=== PATIENT | male | born 1935 | race African-American/Black ===

== ENCOUNTER 2017-04-21 18:12 | Emergency (ER) | payer MEDICARE, MEDICAID ==
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
--- NOTE | 2017-04-22 08:22 | Diagnostic Imaging Report ---
Exam: Cervical spine. HISTORY: Pain Findings: Multiple views of cervical spine reviewed. The study demonstrates degenerative osteophytic changes with narrowing of the intravertebral disc space and extensive osteophytic spurring throughout. There is no evidence of fracture dislocation. The visualized odontoid process is intact. No prevertebral soft tissue swelling is noted. 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
== END 2017-04-21 21:25 | disposition home or self-care (01) ==
LOC: ER 18:12
DX: S16.1XXA Strain of muscle, fascia and tendon at neck level, initial encounter (principal); I25.10 Atherosclerotic heart disease of native coronary artery without angina pectoris; E11.9 Type 2 diabetes mellitus without complications; V49.9XXA Car occupant (driver) (passenger) injured in unspecified traffic accident, initial encounter; Y99.8 Other external cause status; Y92.410 Unspecified street and highway as the place of occurrence of the external cause; Y93.89 Activity, other specified
CPT/HCPCS: 72050-TC; 82948-90; Z7502; Z7610

== ENCOUNTER 2018-02-24 01:58 | Emergency (ER) | payer MEDICARE, MEDICAID ==
[2018-02-24] MEDS ORDERED: Magnesium Citrate 1.75 GM/300 mL Bottle PO ONE (03:38)
[2018-02-24] MEDS ORDERED: Magnesium Citrate 1.75 GM/300 mL Bottle ONE (03:43)
--- NOTE | 2018-02-24 03:45 | ED Physician Chart ---
ED Chief Complaint/HPI - Patient Information Date Seen:: 02/24/18 Time Seen:: 03:39 Chief Complaint:: constipation History of Present Illness:: 83 yr old black male with 5 day hx of constipation no hx of bowel surgery did one enema that pharmacy gave him some nausea and can not take liquids feels like vomiting Allergies:: Allergies Allergy/AdvReac Type Severity Reaction Status Date / Time No Known Allergies Allergy Verified 04/21/17 19:22 Vitals:: Vital Signs - 8 hr 02/24/18 02:30 Temp 96.7 F HR 71 RR 17 BP 188/80 O2 Sat % 97 Historian:: Patient ED Review of Systems - Review of Systems General/Constitutional: No fever, No chills, No weight loss, No weakness, No diaphoresis, No edema, No loss of appetite Skin: No skin lesions, No rash, No bruising Head: No headache, No light-headedness Eyes: No loss of vision, No pain, No diplopia ENT: No earache, No nasal drainage, No sore throat, No tinnitus Neck: No neck pain, No swelling, No thyromegaly, No stiffness, No mass noted Cardio Vascular: No chest pain, No palpitations, No PND, No orthopnea, No edema Pulmonary: No SOB, No cough, No sputum, No wheezing GI: Nausea, Constipation G/U: No dysuria, No frequency, No hematuria Musculoskeletal: No bone or joint pain, No back pain, No muscle pain Endocrine: No polyuria, No polydipsia Psychiatric: No prior psych history, No depression, No anxiety, No suicidal ideation Hematopoietic: No bruising, No lymphadenopathy Allergic/Immuno: No urticaria, No angioedema Neurological: No syncope, No focal symptoms, No weakness, No paresthesia, No headache, No seizure, No dizziness, No confusion, No vertigo ED Past Medical History - Past Medical History Past Medical History: DM, CAD, Dyslipidemia Surgical History: CABG ED Physical Exam - Physical Examination General/Constitutional: Awake, Well-developed, well-nourished, Alert, No distress, GCS 15, Non-toxic appearing, Ambulatory Head: Atraumatic Eyes: Lids, conjuctiva normal, PERRL, EOMI Skin: Nl inspection, No rash, No skin lesions, No ecchymosis, Well hydrated, No lymphadenopathy ENMT: External ears, nose nl, Nasal exam nl, Lips, teeth, gums nl Neck: Nontender, Full ROM w/o pain, No JVD, No nuchal rigidity, No bruit, No mass, No stridor Respiratory: Nl effort/Exclusion, Clear to Auscultation, No Wheeze/Rhonchi/Rales Cardio Vascular: RRR, No murmur, gallop, rubs, NL S1 S2 GI: No tenderness/rebounding/guarding, No organomegaly, No hernia, Normal BS's, Nondistended, No mass/bruits, No McBurney tenderness : No CVA tenderness Extremities: No tenderness or effusion, Full ROM, normal strength in all extremities, No edema, Normal digits & nails Neuro/Psych: Alert/oriented, DTR's symmetric, Normal sensory exam, Normal motor strength, Judgement/insight normal, Mood normal, Normal gait, No focal deficits Misc: Normal back, No paraspinal tenderness ED Assessment - Assessment General Assessment: constipation ED Septic Shock - . Is Septic Shock (SBP<90, OR Lactate>4 mmol\L) present?: No - <6hrs of presentation: Vital Signs: Vital Signs - 8 hr 02/24/18 02:30 Temp 96.7 F HR 71 RR 17 BP 188/80 O2 Sat % 97 ED Reassessment (Disposition) - Reassessment Reassessment Condition:: Improved - Diagnosis Diagnosis:: constipation - Patient Disposition Condition at Disposition:: Stable
== END 2018-02-24 04:32 | disposition home or self-care (01) ==
LOC: ER 01:58
DX: K59.00 Constipation, unspecified (principal); R11.0 Nausea; E11.9 Type 2 diabetes mellitus without complications; E78.5 Hyperlipidemia, unspecified; I25.10 Atherosclerotic heart disease of native coronary artery without angina pectoris; Z95.1 Presence of aortocoronary bypass graft

== ENCOUNTER 2019-01-17 08:02 | Inpatient (IN) | payer MEDICARE, MEDICAID ==
--- NOTE | 2019-01-17 08:58 | ED Physician Chart ---
ED Chief Complaint/HPI - Patient Information Date Seen:: 01/17/19 Time Seen:: 08:56 Chief Complaint:: cough fever History of Present Illness:: 84 yr old male from long term with cough fever congestion hx of bypass surgery Allergies:: Allergies Allergy/AdvReac Type Severity Reaction Status Date / Time No Known Allergies Allergy Verified 04/21/17 19:22 Vitals:: Vital Signs - 8 hr 01/17/19 08:15 Temp 97.7 F HR 82 RR 20 BP 185/90 O2 Sat % 97 ED Review of Systems - Review of Systems General/Constitutional: No fever Skin: No skin lesions Head: No headache Eyes: No loss of vision ENT: No earache Cardio Vascular: No palpitations Pulmonary: Cough GI: No vomiting Endocrine: No polyuria Hematopoietic: No bruising Allergic/Immuno: No urticaria Neurological: No syncope ED Past Medical History - Past Medical History Past Medical History: DM, CAD Family Medical History - Family Member Mother History Unknown: Yes ED Physical Exam - Physical Examination General/Constitutional: Awake, Well-developed, well-nourished, Alert, No distress, GCS 15, Non-toxic appearing, Ambulatory Head: Atraumatic Eyes: Lids, conjuctiva normal, PERRL, EOMI Skin: Nl inspection, No rash, No skin lesions, No ecchymosis, Well hydrated, No lymphadenopathy ENMT: External ears, nose nl, Nasal exam nl, Lips, teeth, gums nl Neck: Nontender, Full ROM w/o pain, No JVD, No nuchal rigidity, No bruit, No mass, No stridor Respiratory: Nl effort/Exclusion, Clear to Auscultation, No Wheeze/Rhonchi/Rales Cardio Vascular: RRR, No murmur, gallop, rubs, NL S1 S2 GI: No tenderness/rebounding/guarding, No organomegaly, No hernia, Normal BS's, Nondistended, No mass/bruits, No McBurney tenderness : No CVA tenderness Extremities: No tenderness or effusion, Full ROM, normal strength in all extremities, No edema, Normal digits & nails Neuro/Psych: Alert/oriented, DTR's symmetric, Normal sensory exam, Normal motor strength, Judgement/insight normal, Mood normal, Normal gait, No focal deficits Misc: Normal back, No paraspinal tenderness ED Assessment - Assessment General Assessment: sob cough ED Septic Shock - . Is Septic Shock (SBP<90, OR Lactate>4 mmol\L) present?: No - <6hrs of presentation: Vital Signs: Vital Signs - 8 hr 01/17/19 08:15 Temp 97.7 F HR 82 RR 20 BP 185/90 O2 Sat % 97 ED Reassessment (Disposition) - Reassessment Reassessment:: sob cough - Diagnosis Diagnosis:: sob cough - Patient Disposition Discharge/Transfer:: Acute Care w/in this hosp Admitted to:: Telemetry Condition at Disposition:: Stable
[2019-01-17] MEDS ORDERED: Albuterol/Ipratropium Neb 3 ML AERS HHN ONE (09:17)
[2019-01-17 09:27] LABS: HEMATOCRIT 36.5 % (41.0-60); HEMOGLOBIN 11.8 gm/dL (12-16); MEAN CELL VOLUME 82.1 fl (80-99); MEAN CORPUSCULAR HEMOGLOBIN 26.6 pg (27.0-31.0); MEAN CORPUSCULAR HGB CONC 32.3 pg (28.0-36.0); PLATELET COUNT 169 Th/cmm (150-400); RED BLOOD COUNT 4.45 Mil/cmm (3.80-5.80)
[2019-01-17 09:37] LABS: ALB/GLOB RATIO 1.4 (1.0-1.8); ALBUMIN 3.5 gm/dL (4.2-5.5); ALKALINE PHOSPHATASE 64 U/L (34-104); ANION GAP 12.1 (7.0-16.0); BILIRUBIN,TOTAL 0.4 mg/dL (0.3-1.0); BUN - UREA NITROGEN 14 mg/dL (7-25); CALCIUM SERUM 8.7 mg/dL (8.6-10.3); CARBON DIOXIDE 25.7 mEq/L (21.0-31.0); CHLORIDE 110 mEq/L (98-107); CREATININE - SERUM 1.2 mg/dL (0.7-1.3); GLUCOSE 82 mg/dL (70-105); POTASSIUM SERUM 3.8 mEq/L (3.5-5.1); SGOT 11 U/L (13-39); SGPT/ALT 13 U/L (7-52); SODIUM SERUM 144 mEq/L (136-145); TOTAL PROTEIN,SERUM 6.1 gm/dL (6.0-8.3)
[2019-01-17 10:21] LABS: BAND NEUTROPHILE 3 % (0-10); BASOPHIL 0 % (0-3); LYMPHOCYTE 54 % (20-50); MONOCYTE 6 % (2-10); NEUTROPHILS 35 % (40-80); WHITE BLOOD COUNT 3.9 Th/cmm (4.8-10.8)
[2019-01-17 10:22] LABS: EOSINOPHIL 2 % (0-5)
[2019-01-17 10:30] LABS: URINE BILIRUBIN NEGATIVE (NEGATIVE); URINE BLOOD NEGATIVE (NEGATIVE); URINE GLUCOSE (UA) NEGATIVE (NEGATIVE); URINE KETONE NEGATIVE (NEGATIVE); URINE LEUKOCYTE ESTERASE NEGATIVE (NEGATIVE); URINE NITRATE NEGATIVE (NEGATIVE); URINE PH 6.5 (4.6 - 8.0); URINE PROTEIN NEGATIVE (NEGATIVE); URINE SOURCE CLEAN C; URINE UROBILINOGEN 0.2 E.U./dL (0.2 - 1.0)
[2019-01-17 10:32] LABS: URINE CLARITY CLEAR (CLEAR); URINE COLOR YELLOW; URINE MICROSCOPIC INDICATED? NO
[2019-01-17] MEDS ORDERED: NITROGLYCERIN OINT 2% 1 INCH PACKET TP STA (12:14)
[2019-01-17] MEDS ORDERED: NITROGLYCERIN OINT 2% 1 INCH PACKET TP ONE (12:29)
[2019-01-17 16:46] VITALS: BP 146/80
[2019-01-18 06:43] LABS: ALB/GLOB RATIO 1.3 (1.0-1.8); ALBUMIN 3.5 gm/dL (4.2-5.5); ALKALINE PHOSPHATASE 64 U/L (34-104); BILIRUBIN,TOTAL 0.5 mg/dL (0.3-1.0); BUN - UREA NITROGEN 19 mg/dL (7-25); CALCIUM SERUM 8.9 mg/dL (8.6-10.3); CARBON DIOXIDE 29.8 mEq/L (21.0-31.0); CHLORIDE 105 mEq/L (98-107); CREATININE - SERUM 1.3 mg/dL (0.7-1.3); GLUCOSE 87 mg/dL (70-105); POTASSIUM SERUM 3.8 mEq/L (3.5-5.1); SGOT 10 U/L (13-39); SGPT/ALT 12 U/L (7-52); SODIUM SERUM 141 mEq/L (136-145); TOTAL PROTEIN,SERUM 6.2 gm/dL (6.0-8.3)
[2019-01-18] MEDS: methylPREDNISolone 4 MG TAB PO SCH (08:17)
[2019-01-18] MEDS ORDERED: Non-Formulary Item 1 EA (Cholecalciferol (Vitamin D3) [Vitamin D3] 5,000 UNIT) PO SCH (09:00)
--- NOTE | 2019-01-18 09:54 | Diagnostic Imaging Report ---
Portable chest x-ray Time: 905 History: Shortness of breath Allowing for portable technique the heart size is normal. No focal pulmonary parenchymal processes. No hilar or mediastinal abnormalities. Multiple metallic sutures are noted status post transsternal thoracotomy. Impression: No acute abnormalities.
[2019-01-18 11:07] LABS: HEMATOCRIT 37.6 % (41.0-60); HEMOGLOBIN 11.9 gm/dL (12-16); RED BLOOD COUNT 4.49 Mil/cmm (3.80-5.80)
[2019-01-18 11:08] LABS: % BASOPHILS 0.3 % (0.0-2.0); % EOSINOPHILS 3.9 % (0.0-5.0); % LYMPHOCYTES 35.7 % (20.0-50.0); % MONOCYTES 9.1 % (2.0-10.0); EOSINOPHILE ABSOLUTE 0.2 Th/cmm (0.1-0.4); LYMPHOCYTE ABSOLUTE 1.8 Th/cmm (1.5-3.0); MEAN CELL VOLUME 83.8 fl (80-99); MEAN CORPUSCULAR HEMOGLOBIN 26.6 pg (27.0-31.0); MEAN CORPUSCULAR HGB CONC 31.8 pg (28.0-36.0); MONOCYTE ABSOLUTE 0.5 Th/cmm (0.3-1.0); NEUTROPHILE ABSOLUTE 2.6 Th/cmm (1.8-8.0); PLATELET COUNT 150 Th/cmm (150-400)
--- NOTE | 2019-01-18 11:15 | History and Physical ---
History of Present Illness - HPI Chief Complaint: SOB HPI: Patient refer that he started having SOB and due to the Hx (Bypass surgery ) he decided to come to ER. In ER eval Tropo, CXR and blood work was Ok. Vital Signs: Last Vital Signs Temp 96.6 F 01/18/19 08:02 Pulse 74 01/18/19 10:06 Resp 19 01/18/19 08:02 BP 136/59 01/18/19 10:06 Pulse Ox 99 01/18/19 08:02 Past Medical History Cardiovascular: Report: CAD, HTN Pulmonary: Report: No Pertinent Hx PHONE SPECIALIST: Report: No Pertinent Hx GI: Report: No Pertinent Hx Psych: Report: No Pertinent Hx Musculoskeletal: Report: No Pertinent Hx Rheumatologic: Report: No pertinent Hx Infectious Disease: Report: No Pertinent Hx Renal/: Report: No Pertinent Hx Endocrine: Report: Diabetes Dermatology: Report: No Pertinent Hx - Past Surgical History Past Surgical History: Other (Bypass surgery) Family Medical History - Family Member Mother History Unknown: Yes Other Medical History: DM, HTN, Gout, Hyperlipidemia Social History Smoke: No Alcohol: None Drugs: None Lives: With Family Domestic Violence: Negative - Medications Home Medications: Home Medication Medication Instructions Recorded Type Aspirin [Adult Low Dose Aspirin EC] 81 mg PO DAILY 01/17/19 History Atorvastatin Calcium [Lipitor] 20 mg PO DAILY 01/17/19 History Carvedilol [Coreg] 12.5 mg PO BID 01/17/19 History Cholecalciferol (Vitamin D3) 5,000 unit PO DAILY 01/17/19 History [Vitamin D3] Methylprednisolone [Medrol Dosepak] 4 mg PO PRN 01/17/19 History Mirabegron [Myrbetriq] 50 mg PO DAILY 01/17/19 History Pregabalin [Lyrica] 75 mg PO BID 01/17/19 History Tamsulosin HCl [Flomax] 0.4 mg PO BID 01/17/19 History Terazosin HCl 2 mg PO DAILY 01/17/19 History - Allergies Allergies/Adverse Reactions: Allergies Allergy/AdvReac Type Severity Reaction Status Date / Time No Known Allergies Allergy Verified 04/21/17 19:22 Review of Systems - Review of Systems Constitutional: Report: No Significant Eyes: Report: No Significant ENT: Report: No Significant Respiratory: Report: SOB with Excertion Cardiovascular: Report: No Significant Gastrointestinal: Report: No Significant Genitourinary: Report: No Significant Musculoskeletal: Report: No Significant Skin: Report: No Significant Neurological: Report: No Significant Physical Exam - Physical Exam HEENT: Report: Ears Nose Throat within normal limits Neck: Report: Within normal limits Cardiovascular Systems: Report: Regular, Rate and Rhythm Respiratory: Report: Breath Sounds are within normal limits Abdomen: Report: Non-tender to palpation Back: Report: Inspection of back is within normal limits. Extremities: Report: Non-tender to palpation. Skin: Report: Color of skin is within normal limits Neuro/Psych: Report: Mood affect is within normal limits, CN II-XII intact - Lab Results All Lab Results last 24 hours: Laboratory Results - last 24 hr 01/17/19 01/18/19 01/18/19 16:26 00:02 05:57 WBC 5.0 RBC 4.49 Hgb 11.9 L Hct 37.6 L MCV 83.8 MCH 26.6 L MCHC Differential 31.8 RDW 16.0 Plt Count 150 MPV 10.5 Neutrophils % 51.0 Lymphocytes % 35.7 Monocytes % 9.1 Eosinophils % 3.9 Basophils % 0.3 Sodium Potassium Chloride Carbon Dioxide Anion Gap BUN Creatinine Est GFR ( Amer) Est GFR (Non-Af Amer) BUN/Creatinine Ratio Glucose POC Glucose 147 H 88 Calcium Total Bilirubin AST ALT Alkaline Phosphatase Total Protein Albumin Globulin Albumin/Globulin Ratio TSH 01/18/19 01/18/19 01/18/19 05:57 05:57 06:03 WBC RBC Hgb Hct MCV MCH MCHC Differential RDW Plt Count MPV Neutrophils % Lymphocytes % Monocytes % Eosinophils % Basophils % Sodium 141 Potassium 3.8 Chloride 105 Carbon Dioxide 29.8 Anion Gap 10.0 BUN 19 Creatinine 1.3 Est GFR ( Amer) TNP Est GFR (Non-Af Amer) TNP BUN/Creatinine Ratio 14.6 Glucose 87 POC Glucose 67 L Calcium 8.9 Total Bilirubin 0.5 AST 10 L ALT 12 Alkaline Phosphatase 64 Total Protein 6.2 Albumin 3.5 L Globulin 2.7 Albumin/Globulin Ratio 1.3 TSH 2.08 01/18/19 08:30 WBC RBC Hgb Hct MCV MCH MCHC Differential RDW Plt Count MPV Neutrophils % Lymphocytes % Monocytes % Eosinophils % Basophils % Sodium Potassium Chloride Carbon Dioxide Anion Gap BUN Creatinine Est GFR ( Amer) Est GFR (Non-Af Amer) BUN/Creatinine Ratio Glucose POC Glucose 163 H Calcium Total Bilirubin AST ALT Alkaline Phosphatase Total Protein Albumin Globulin Albumin/Globulin Ratio TSH Microbiology 01/17/19 09:10 - Preliminary Blood NO GROWTH AFTER 24 HOURS 01/17/19 09:16 - Preliminary Blood NO GROWTH AFTER 24 HOURS - Assessment Assessment: Patient is awake, alert, calm in no acute distress. No more SOB. Dx: SOB, DM, CAD, Hx of bypass. - Plan Plan: Patient is continue with home meds. started with breath treatment. Echocardiogram requested. Will continue to monitor. Awaiting Cardio evaluation. Will continue to monitor.
[2019-01-18] MEDS: Ipratropium Neb 0.5 mg/2.5 mL UD HHN SCH ×2 (14:44→22:25)
[2019-01-18] MEDS ORDERED: GLUCAGON HCl 1 MG KIT IM PRN (18:25)
[2019-01-18] MEDS ORDERED: Dextrose 50% 50 mL Abboject IVP PRN (18:25)
[2019-01-18] MEDS: INSULIN LISPRO SLIDING SCALE 100 UNITS/ML UNIT SUBQ SCH (18:36)
[2019-01-18] MEDS ORDERED: Atorvastatin Calcium 10 MG TAB PO SCH (21:00)
[2019-01-19] MEDS: INSULIN LISPRO SLIDING SCALE 100 UNITS/ML UNIT SUBQ SCH ×2 (00:37→06:34)
[2019-01-19 05:17] LABS: ALB/GLOB RATIO 1.3 (1.0-1.8); ALBUMIN 3.5 gm/dL (4.2-5.5); ALKALINE PHOSPHATASE 63 U/L (34-104); ANION GAP 12.5 (7.0-16.0); BILIRUBIN,TOTAL 0.6 mg/dL (0.3-1.0); BUN - UREA NITROGEN 19 mg/dL (7-25); CALCIUM SERUM 9.2 mg/dL (8.6-10.3); CARBON DIOXIDE 29.7 mEq/L (21.0-31.0); CHLORIDE 102 mEq/L (98-107); CREATININE - SERUM 1.4 mg/dL (0.7-1.3); GLUCOSE 137 mg/dL (70-105); POTASSIUM SERUM 4.2 mEq/L (3.5-5.1); SGOT 10 U/L (13-39); SGPT/ALT 11 U/L (7-52); SODIUM SERUM 140 mEq/L (136-145); TOTAL PROTEIN,SERUM 6.3 gm/dL (6.0-8.3)
[2019-01-19] MEDS: Ipratropium Neb 0.5 mg/2.5 mL UD HHN SCH (07:09)
[2019-01-19] MEDS: methylPREDNISolone 4 MG TAB PO SCH (08:02)
--- NOTE | 2019-01-19 08:39 | Discharge Summary ---
General Discharge Summary - Discharge Summary Date of Admission: 01/17/19 Admitting Diagnosis: SOB, DM, CAD, Hx of bypass Discharge Date: 01/19/19 Discharge Diagnosis: CHF, SOB, DM, CAD, Hx of bypass Laboratory Findings: Laboratory Results - last 24 hr 01/18/19 01/18/19 01/18/19 05:57 11:51 18:02 WBC 5.0 RBC 4.49 Hgb 11.9 L Hct 37.6 L MCV 83.8 MCH 26.6 L MCHC Differential 31.8 RDW 16.0 Plt Count 150 MPV 10.5 Neutrophils % 51.0 Lymphocytes % 35.7 Monocytes % 9.1 Eosinophils % 3.9 Basophils % 0.3 Sodium Potassium Chloride Carbon Dioxide Anion Gap BUN Creatinine Est GFR ( Amer) Est GFR (Non-Af Amer) BUN/Creatinine Ratio Glucose POC Glucose 116 H 269 H Calcium Total Bilirubin AST ALT Alkaline Phosphatase Troponin I Total Protein Albumin Globulin Albumin/Globulin Ratio 01/18/19 01/19/19 01/19/19 23:35 04:30 04:30 WBC RBC Hgb Hct MCV MCH MCHC Differential RDW Plt Count MPV Neutrophils % Lymphocytes % Monocytes % Eosinophils % Basophils % Sodium 140 Potassium 4.2 Chloride 102 Carbon Dioxide 29.7 Anion Gap 12.5 BUN 19 Creatinine 1.4 H Est GFR ( Amer) TNP Est GFR (Non-Af Amer) TNP BUN/Creatinine Ratio 13.6 Glucose 137 H POC Glucose 137 H Calcium 9.2 Total Bilirubin 0.6 AST 10 L ALT 11 Alkaline Phosphatase 63 Troponin I 0.03 Total Protein 6.3 Albumin 3.5 L Globulin 2.8 Albumin/Globulin Ratio 1.3 01/19/19 06:25 WBC RBC Hgb Hct MCV MCH MCHC Differential RDW Plt Count MPV Neutrophils % Lymphocytes % Monocytes % Eosinophils % Basophils % Sodium Potassium Chloride Carbon Dioxide Anion Gap BUN Creatinine Est GFR ( Amer) Est GFR (Non-Af Amer) BUN/Creatinine Ratio Glucose POC Glucose 114 H Calcium Total Bilirubin AST ALT Alkaline Phosphatase Troponin I Total Protein Albumin Globulin Albumin/Globulin Ratio Hospital Course: Patient responded to treatment, he improved and felt better, no more SOB. Treatment: Patient was started in IV NS, IV Lasix, Breathing treatment and continue with home meds. Condition at Discharge: Stable Disposition: PT DISCHARGED HOME Home Medications: Home Medication Medication Instructions Recorded Type Aspirin [Adult Low Dose Aspirin EC] 81 mg PO DAILY 01/17/19 History Atorvastatin Calcium [Lipitor] 20 mg PO DAILY 01/17/19 History Carvedilol [Coreg] 12.5 mg PO BID 01/17/19 History Cholecalciferol (Vitamin D3) 5,000 unit PO DAILY 01/17/19 History [Vitamin D3] Methylprednisolone [Medrol Dosepak] 4 mg PO PRN 01/17/19 History Mirabegron [Myrbetriq] 50 mg PO DAILY 01/17/19 History Pregabalin [Lyrica] 75 mg PO BID 01/17/19 History Tamsulosin HCl [Flomax] 0.4 mg PO BID 01/17/19 History Terazosin HCl 2 mg PO DAILY 01/17/19 History Inpatient Medications: Current Medications Acetaminophen (Tylenol) 650 mg PO Q6H PRN PRN Reason: Pain or Fever >101 Stop: 03/18/19 14:43 Last Admin: 01/17/19 14:55 Dose: 650 mg Atorvastatin Calcium (Lipitor) 20 mg PO HS [facility] Stop: 03/19/19 20:59 Last Admin: 01/18/19 20:06 Dose: 20 mg Bisacodyl (Dulcolax 5 Mg Ec Tab) 5 mg PO X1 ONE Stop: 01/19/19 08:35 Carvedilol (Coreg) 12.5 mg PO BID [facility] Stop: 03/18/19 17:59 Last Admin: 01/19/19 08:11 Dose: Not Given Cholecalciferol (Vitamin D3) 5,000 iu PO DAILY [facility] Stop: 03/19/19 08:59 Last Admin: 01/19/19 08:10 Dose: 5,000 iu Dextrose (D50w) 50 ml IVP PRN PRN PRN Reason: Blood Glucose less than 70 Stop: 03/19/19 18:24 Dextrose (Glutose 40%) 18.75 gm PO PRN PRN PRN Reason: Blood Glucose less than 70 Stop: 03/19/19 18:24 Glucagon (Glucagen) 1 mg IM PRN PRN PRN Reason: Blood Glucose less than 70 Stop: 03/19/19 18:24 Insulin Human Lispro (Humalog Insulin Sliding Scale) 0 units SUBQ Q6HR SHANEKA; Protocol Stop: 03/19/19 18:29 Last Admin: 01/19/19 06:34 Dose: Not Given Ipratropium [place] (Atrovent Neb 0.5mg/2.5ml) 0.5 mg HHN Q8HRT [facility]ANEKA Stop: 03/19/19 14:59 Last Admin: 01/19/19 07:09 Dose: 0.5 mg Methylprednisolone (Medrol) 4 mg PO DAILY [facility] Stop: 03/19/19 08:59 Last Admin: 01/19/19 08:02 Dose: 4 mg Pregabalin (Lyrica) 75 mg PO BID [facility] Stop: 03/19/19 08:59 Last Admin: 01/19/19 08:02 Dose: 75 mg Tamsulosin HCl (Flomax) 0.4 mg PO BID [facility] Stop: 03/19/19 08:59 Last Admin: 01/19/19 08:09 Dose: 0.4 mg Terazosin HCl (Hytrin) 2 mg PO DAILY [facility] Stop: 03/19/19 08:59 Last Admin: 01/19/19 08:11 Dose: 2 mg Activity: As Tolerated Discharge Diet: 2 Gram Sodium Consults and Follow-Up: JESSICA BUCKLEY [Other] not on staff,PCP is [Primary Care Provider] - Consulting Speciality: Cardiac, Other (PCP)
[2019-01-19 08:45] LABS: RED BLOOD COUNT 4.59 Mil/cmm (3.80-5.80); WHITE BLOOD COUNT 6.7 Th/cmm (4.8-10.8)
[2019-01-19 08:46] LABS: % LYMPHOCYTES 31.9 % (20.0-50.0); % NEUTROPHILS 56.4 % (40.0-80.0); HEMATOCRIT 38.1 % (41.0-60); HEMOGLOBIN 12.1 gm/dL (12-16); MEAN CELL VOLUME 83.1 fl (80-99); MEAN CORPUSCULAR HEMOGLOBIN 28.4 pg (27.0-31.0); MEAN CORPUSCULAR HGB CONC 31.8 pg (28.0-36.0); PLATELET COUNT 145 Th/cmm (150-400); RED CELL DISTRIBUTION WIDTH 16.1 % (11.5-20.0)
[2019-01-19 08:47] LABS: % BASOPHILS 0.4 % (0.0-2.0); % MONOCYTES 10.3 % (2.0-10.0)
--- NOTE | 2019-01-20 02:51 | Cardiology ---
01/18/[address] Moises Capone. PROCEDURE: Echocardiogram. M-MODE ECHOCARDIOGRAM: Mitral valve, anterior leaflet of mitral valve shows normal excursion, EF velocity. Posterior leaflet of the mitral valve shows normal excursion. Left ventricular posterior wall shows increased thickness, normal excursion. Interventricular septum shows increased thickness, normal excursion, hypertrophy of the left ventricle, ejection fraction 55%. Left atrium normal. Aortic root shows normal dimension, normal excursion of aortic leaflets. CONCLUSION: Hypertrophy of the left ventricle, ejection fraction 55%. 2D ECHO: Long axis view showed normal sized left ventricle with hypertrophy of the left ventricle. Left atrium normal. Aortic root shows normal dimension, normal excursion of aortic leaflets. Short axis view of mitral valve normal. Short axis view of aortic valve normal. Apical four chamber view showed normal sized left ventricle with hypertrophy of the left ventricle. Left atrium normal. Right ventricular cavity, right atrium normal, no pericardial effusion. CONCLUSION: Hypertrophy of the left ventricle, ejection fraction 55%. Doppler study shows [id number] aortic regurgitation, [id number] pulmonary regurgitation, right ventricular systolic pressure 25 mmHg. JOB# [id number]
== END 2019-01-19 11:28 | disposition home or self-care (01) | DRG 303 ==
LOC: ER 08:02 → TELE 12:00
PROVIDERS: ADMIT General Practice; ATTEND General Practice
DX: I25.10 Atherosclerotic heart disease of native coronary artery without angina pectoris (principal); I50.32 Chronic diastolic (congestive) heart failure; I11.0 Hypertensive heart disease with heart failure; E11.9 Type 2 diabetes mellitus without complications; E78.5 Hyperlipidemia, unspecified; M10.9 Gout, unspecified; Z79.82 Long term (current) use of aspirin; Z95.1 Presence of aortocoronary bypass graft
CPT/HCPCS: 36415-UA; 71045-TC; 80053-TC; 81003-TC; 82550-TC; 82948-90; 83605; 83880-TC; 84443-TC; 84484-TC; 85007-TC; 85025-TC; 87536-90; 90779; 93005; 94640; 94760; 96374; J1940; J7509; Z7610